=== PATIENT | female | born 1955 ===

== ENCOUNTER 2023-02-19 21:08 | Observation (INO) | payer OTHER ==
[2023-02-19 21:53] LABS: HEMATOCRIT 43.7 % (32.4-45.2); HEMOGLOBIN 15.4 G/dL (10.7-15.3); MCH 32.9 pg (25.7-33.7); MCHC 35.3 g/dl (32.0-36.0); MEAN CELL VOLUME 93.2 fl (80-96); MEAN PLT VOLUME 8.1 fl (7.5-11.1); PLATELET COUNT 198.8 10^3/uL (134-434); RBC 4.69 10^6/uL (3.60-5.2); RDW 13.8 % (11.6-15.6); WHITE BLOOD COUNT 6.7 10^3/uL (4.0-10.8)
[2023-02-19 22:03] LABS: INR 0.98 (0.83-1.09); PROTHROMBIN TIME (PATIENT) 11.3 SEC (9.7-13.0)
[2023-02-19 22:10] LABS: ALBUMIN 4.1 g/dl (3.4-5.0); BILIRUBIN,TOTAL 0.6 mg/dl (0.2-1); CALCIUM 9.5 mg/dl (8.5-10); CREATININE 0.6 mg/dl (0.55-1.3); TOT PROT 6.9 g/dl (6.4-8.2)
[2023-02-19] MEDS ORDERED: SODIUM CHLORIDE 1,000 ML IV ONE (22:23)
[2023-02-20] MEDS ORDERED: ACETAMINOPHEN 325 MG TABLET (FP) PO PRN (01:28)
[2023-02-20] MEDS ORDERED: DOCUSATE SODIUM 100 MG CAPSULE (FP) PO PRN (01:28)
[2023-02-20] MEDS ORDERED: MAG HYDROX/AL HYDROX/SIMETH 30 ML UNIT-DOSE CUP PO PRN (01:38)
[2023-02-20] MEDS ORDERED: ARTIFICIAL TEARS (POLYVINYL ALCOHOL) OPTH DROPS OU PRN (01:40)
[2023-02-20] MEDS ORDERED: GABAPENTIN 100 MG CAPSULE PO SCH (01:45)
[2023-02-20] MEDS ORDERED: SODIUM CHLORIDE 0.9%/KCL 20 MEQ/1,000 ML INFUS.BAG IV SCH ×2 (01:45→02:20)
[2023-02-20 01:57] VITALS: RESP 18; BMI 29.1
[2023-02-20] MEDS: APIXABAN 5 MG TABLET PO SCH ×2 (03:06→10:31)
[2023-02-20] MEDS ORDERED: SODIUM CHLORIDE 0.9% 500 ML INFUS.BAG IV ONE (09:07)
[2023-02-20 09:14] LABS: CALCIUM 8.7 mg/dl (8.5-10); CREATININE 0.5 mg/dl (0.55-1.3); MAGNESIUM 2.1 mg/dL (1.8-2.4); PHOSPHOROUS 3.5 mg/dl (2.5-4.9)
[2023-02-20 09:36] LABS: HEMATOCRIT 39.8 % (32.4-45.2); HEMOGLOBIN 13.6 G/dL (10.7-15.3); MCHC 34.1 g/dl (32.0-36.0); MEAN CELL VOLUME 93.6 fl (80-96); MEAN PLT VOLUME 8.6 fl (7.5-11.1); PLATELET COUNT 190.1 10^3/uL (134-434); RBC 4.25 10^6/uL (3.60-5.2); RDW 14.3 % (11.6-15.6); WHITE BLOOD COUNT 4.8 10^3/uL (4.0-10.8)
[2023-02-20] MEDS ORDERED: ESCITALOPRAM OXALATE 20 MG TABLET PO SCH (10:00)
[2023-02-20] MEDS ORDERED: CHOLECALCIFEROL (VIT D3) 1,000 UNIT (25 MCG) TABLET PO SCH (10:00)
[2023-02-20 10:02] LABS: CHOLESTEROL 142 mg/dl (50-200); HDL CHOLESTEROL 46 mg/dl (40-60); LDL CHOLESTEROL (ONLY DFH) 90 mg/dl (5-100)
[2023-02-20 10:58] LABS: N-TERMINAL BNP 1850.8 pg/ml (5-125)
[2023-02-20 14:15] VITALS: BP 115/81; PULSE 74; TEMP 98.3
== END 2023-02-20 15:04 | disposition home or self-care (01) ==
LOC: FER 21:08 → UNDOADMOB 02-20 01:22 → FM/S 02-20 01:22 → INTOOBSV 02-20 01:22 → FM/S 02-20 09:34
PROVIDERS: ADMIT Internal Medicine
PROC: 3E0337Z Introduction of Electrolytic and Water Balance Substance into Peripheral Vein, Percutaneous Approach (ICD-10-PCS; principal; 2023-02-20)
DX: I48.91 Unspecified atrial fibrillation (principal); Q76.0 Spina bifida occulta; I10 Essential (primary) hypertension; E03.9 Hypothyroidism, unspecified; Z79.01 Long term (current) use of anticoagulants; R55 Syncope and collapse
CPT/HCPCS: 0241U-QW; 36415; 71045-TC-FY; 71275-TC; 80048; 80053; 80061; 81003; 82550; 83036; 83735; 83880; 84100; 84439; 84443; 84484; 85027; 85610; 85730; 87040; 93005; 93970-TC; 96360; 96361; 99285-25; C9803-CS; G0378; Q9967; U0003; U0005